=== PATIENT | male | born 1985 | race Caucasian/White ===

== ENCOUNTER 2020-07-16 07:10 | Day surgery (SDC) | payer BC ==
[~2020-07-16] VITALS: Ht 182.9 cm; Wt 160.7 kg
[2020-07-16 07:28] VITALS: BP 149/105; PULSE 84; TEMP 97.6
[2020-07-16] MEDS ORDERED: PHENERGAN 25 TA25 MG PO (07:30)
[2020-07-16] MEDS ORDERED: ADDERALL10 MG PO (07:30)
[2020-07-16] MEDS ORDERED: LIPITOR 40MG TA40 MG PO (07:31)
[2020-07-16] MEDS ORDERED: NORVASC 10MG10 MG PO (07:31)
[2020-07-16] MEDS ORDERED: ADDERALL XR30 MG PO (07:31)
[2020-07-16] MEDS ORDERED: CHANTIX 1MG1 MG PO (07:32)
[2020-07-16] MEDS ORDERED: LEXAPRO 10MG10 MG PO (07:32)
[2020-07-16] MEDS ORDERED: TOPAMAX50 MG PO (07:33)
[2020-07-16 08:55] VITALS: BP 149/97; PULSE 83; TEMP 98.2
--- NOTE | 2020-07-16 08:55 | NUR ---
0855 PATIENT TRANSPORTED PER CART TO BAY 1 ACCOMPANIED BY ENDO STAFF. PATIENT AMBULATED FROM CART TO CHAIR WITH 1 ASSIST WITH STEADY GAIT. MONITORS APPLIED. PATIENT ON ROOM AIR AND VSS. AT BEDSIDE. VERBAL REPORT RECEIVED. PATIENT TALKING WITH STAFF AND . 0900 PATIENT GIVEN WATER TO DRINK. VITAL SIGNS SAME AT ADMISSIONS. 09 PATIENT DENIES DISCOMFORT AND NAUSEA. PATIENT GIVEN TOAST AND WATER. 919 VSS. PATIENT EATS TOAST WITHOUT PROBLEMS. 924 DOCTOR IN ROOM AND SPEAKS WITH PATIENT AND . 942 VSS. PATIENT STATES READY TO GO HOME. IV SITE DC'D CATHETER TIP INTACT. PRESSURE AND BANDAGE APPLIED. 944 VSS. DISCHARGE INSTRUCTIONS GIVEN VERBAL AND WRITTEN PACKET. QUESTIONS ANSWERED. PATIENT AND VOICE UNDERSTANDING. PATIENT CHANGES INTO STREET CLOTHES. 0955 PATIENT DISCHARGED PER WHEEL CHAIR ACCOMPANIED BY ADMITTING STAFF TO [facility] AND PERSONAL BELONGS.
[2020-07-16 09:00] VITALS: BP 139/99; PULSE 81
[2020-07-16 09:15] VITALS: BP 130/97; PULSE 68
[2020-07-16 09:30] VITALS: BP 146/94; PULSE 69
[2020-07-16 09:45] VITALS: BP 138/90; PULSE 73
== END 2020-07-16 09:55 | disposition home or self-care (01) ==
LOC: SDCO 07:10
DX: K21.0 Gastro-esophageal reflux disease with esophagitis (principal); K29.30 Chronic superficial gastritis without bleeding; R19.7 Diarrhea, unspecified; K76.0 Fatty (change of) liver, not elsewhere classified; Z79.899 Other long term (current) drug therapy; Z79.82 Long term (current) use of aspirin; E78.00 Pure hypercholesterolemia, unspecified; I10 Essential (primary) hypertension; F41.9 Anxiety disorder, unspecified; F17.210 Nicotine dependence, cigarettes, uncomplicated; Z86.73 Personal history of transient ischemic attack (TIA), and cerebral infarction without residual deficits; F32.9 Major depressive disorder, single episode, unspecified; R56.9 Unspecified convulsions
CPT/HCPCS: J2704; J7030

== ENCOUNTER → 2020-08-20 | Outpatient (CLI) | payer BC ==
[~2020-08-20] MED LIST: ADDERALL XR30 MG PO; ADDERALL10 MG PO; CHANTIX 1MG1 MG PO; LEXAPRO 10MG10 MG PO; LIPITOR 40MG TA40 MG PO; NORVASC 10MG10 MG PO; PHENERGAN 25 TA25 MG PO; TOPAMAX50 MG PO
== END ==
LOC: COL.RAD 08:00
DX: R11.2 Nausea with vomiting, unspecified (principal)
CPT/HCPCS: A9541